=== PATIENT | female | born 1955 | race Caucasian/White ===

== ENCOUNTER 2016-05-05 12:18 | Inpatient (IN) | payer MEDICAID ==
[~2016-05-05] VITALS: Ht 157.5 cm; Wt 61.4 kg
[~2016-05-05 12:18] MED LIST: ACET300T4 PO; ALBU18 IN; BACL10TA PO; BECL80AE9 INH; FLUO-125 PO; IBUP600T27 PO; OMEP40CA PO
[2016-05-05 13:32] LABS: DEFINITIVE VIEW TRANSMISSION; Hematocrit 41.3 % (36.0-46.0); Hemoglobin 12.9 g/dL (12.2-16.2); Mean Corpuscular Hemoglobin 25.2 pg (28.0-32.0); Mean Corpuscular Hgb Conc. 31.4 g/dL (32.0-36.0); Mean Corpuscular Volume 80.4 fL (80.0-100.0); Platelet Count (auto) 518 10^3/uL (140-450); Red Cell Distribution Width 17.7 % (11.6-16.0); White Blood Cell 12.4 10^3/uL (4.4-10.8)
[2016-05-05 13:48] LABS: Metamyelocytes % 0; Myelocytes % 0; Promyelocytes % 0; Reactive Lymphocytes 0
[2016-05-05 13:59] LABS: Albumin 3.2 g/dL (3.4-5.0); BUN/Creatinine Ratio 20.3; Bilirubin, Total 0.2 mg/dL (0.2-1.0); Calcium 9.5 mg/dL (8.5-10.1); Magnesium 2.5 mg/dL (1.6-2.6); Potassium 3.6 mmol/L (3.5-5.1); Total Protein 7.2 g/dL (6.4-8.2)
[2016-05-05 14:07] LABS: Anisocytosis Slight; Platelet Estimate Increased
[2016-05-05] MEDS ORDERED: ALBUTEROL SULF 2.5 MG/0.5ML(0.5%) NEB SOLN NEB STA (18:02)
[2016-05-05] MEDS ORDERED: IPRATROPIUM BROM 0.5 MG/2.5ML INH SOL NEB ONE (18:15)
[2016-05-05] MEDS ORDERED: methylPREDNISolone SOD SUCC 125 MG/2 ML VL IV ONE (18:15)
[2016-05-05] MEDS ORDERED: cefTRIAXone 1GM/50ML D5W 50 ML IV ONE (18:15)
[2016-05-05 18:38] LABS: B-Type Natriuretic Peptide 43.37 pg/mL (0-100)
[2016-05-05 18:52] LABS: Temperature: 22.3 C (20.0-25.0)
[2016-05-05] MEDS ORDERED: AZITHROMYCIN 500MG/D5W 250ML 250 ML IV ONE (21:00)
[2016-05-05] MEDS: SODIUM CHLORIDE 0.9% 1,000 ML IV SCH (21:14)
[2016-05-05] MEDS ORDERED: ONDANSETRON HCL 4 MG/2 ML VIAL IV PRN (21:15)
[2016-05-05] MEDS: IPRATROPIUM BROM 0.5 MG/2.5ML INH SOL NEB SCH (22:40)
[2016-05-05] MEDS: ALBUTEROL SULF 2.5 MG/0.5ML(0.5%) NEB SOLN NEB SCH (22:40)
[2016-05-05] MEDS: BUTALBITAL-ASPIRIN-CAFF(FioriNAL) CAP PO PRN (22:53)
[2016-05-06] MEDS: IPRATROPIUM BROM 0.5 MG/2.5ML INH SOL NEB SCH ×6 (02:00→22:08)
[2016-05-06] MEDS: ALBUTEROL SULF 2.5 MG/0.5ML(0.5%) NEB SOLN NEB SCH ×6 (02:00→22:08)
[2016-05-06 05:49] LABS: Basophils # (auto) 0 uL; Basophils % (auto) 0.6 % (0.0-2.0); DEFINITIVE VIEW TRANSMISSION; Eosinophils # (auto) 0.1 uL; Eosinophils % (auto) 1.2 % (0.0-7.0); Hematocrit 33.2 % (36.0-46.0); Hemoglobin 10.8 g/dL (12.2-16.2); Lymphocytes # (auto) 1.3 uL; Lymphocytes % (auto) 19.2 % (10.0-50.0); Mean Corpuscular Hemoglobin 25.8 pg (28.0-32.0); Mean Corpuscular Hgb Conc. 32.6 g/dL (32.0-36.0); Monocytes # (auto) 0.5 uL; Monocytes % (auto) 7.5 % (0.0-12.0); Neutrophils # (auto) 4.8 uL; Neutrophils % (auto) 71.5 % (37.0-80.0); Platelet Count (auto) 419 10^3/uL (140-450); Red Cell Distribution Width 17.1 % (11.6-16.0); White Blood Cell 6.7 10^3/uL (4.4-10.8)
[2016-05-06 06:01] LABS: Albumin 2.4 g/dL (3.4-5.0); BUN/Creatinine Ratio 24.1; Calcium 8.1 mg/dL (8.5-10.1); Potassium 3.7 mmol/L (3.5-5.1)
[2016-05-06 06:02] LABS: Bilirubin, Total 0.2 mg/dL (0.2-1.0); Total Protein 5.8 g/dL (6.4-8.2)
[2016-05-06] MEDS: SODIUM CHLORIDE 0.9% 1,000 ML IV SCH ×2 (07:28→07:29)
[2016-05-06 08:00] VITALS: BP 102/68
[2016-05-06] MEDS: PANTOPRAZOLE SODIUM 40 MG/10 ML VIAL IV SCH (10:37)
[2016-05-06] MEDS: FLUoxetine HCL 20 MG CAP PO SCH (10:37)
[2016-05-06] MEDS: methylPREDNISolone SOD SUCC 125 MG/2 ML VL IV SCH (10:37)
[2016-05-06] MEDS: ENOXAPARIN SOD 40 MG/0.4 ML SYRINGE SC SCH (10:37)
[2016-05-06] MEDS: BUTALBITAL-ASPIRIN-CAFF(FioriNAL) CAP PO PRN ×2 (15:21→21:00)
[2016-05-06 16:00] VITALS: BP 111/59
[2016-05-06] MEDS: cefTRIAXone 1GM/50ML D5W 50 ML IV SCH (20:45)
[2016-05-06] MEDS: AZITHROMYCIN 500MG/D5W 250ML 250 ML IV SCH (20:46)
[2016-05-06 22:00] VITALS: BP_SYST 102; BP_SYST 93; BP_DIAS 57
[2016-05-07] MEDS: ALBUTEROL SULF 2.5 MG/0.5ML(0.5%) NEB SOLN NEB SCH ×6 (02:00→22:40)
[2016-05-07] MEDS: IPRATROPIUM BROM 0.5 MG/2.5ML INH SOL NEB SCH ×6 (02:00→22:40)
[2016-05-07 03:33] VITALS: BP 93/57
[2016-05-07 05:00] VITALS: BP_SYST 113; BP_SYST 119; BP_DIAS 59; BP_DIAS 80
[2016-05-07] MEDS: BUTALBITAL-ASPIRIN-CAFF(FioriNAL) CAP PO PRN ×2 (06:17→09:43)
[2016-05-07 08:00] VITALS: BP 110/74
[2016-05-07] MEDS: FLUoxetine HCL 20 MG CAP PO SCH (09:44)
[2016-05-07] MEDS: ENOXAPARIN SOD 40 MG/0.4 ML SYRINGE SC SCH (09:44)
[2016-05-07] MEDS: methylPREDNISolone SOD SUCC 125 MG/2 ML VL IV SCH (09:45)
[2016-05-07] MEDS: PANTOPRAZOLE SODIUM 40 MG/10 ML VIAL IV SCH (09:45)
[2016-05-07] MEDS ORDERED: HYDROcodone-ACET 5/325MG TAB ONE (10:32)
[2016-05-07] MEDS ORDERED: HYDROcodone-ACET 5/325MG TAB PO PRN (10:45)
[2016-05-07] MEDS: MORPHINE SULFATE 4 MG/ML SYRG IV PRN ×2 (11:33→21:08)
[2016-05-07 12:00] VITALS: BP 106/71
[2016-05-07] MEDS: SODIUM CHLORIDE 0.9% 1,000 ML IV SCH ×2 (13:19→22:28)
[2016-05-07 16:00] VITALS: BP 96/56
[2016-05-07] MEDS: cefTRIAXone 1GM/50ML D5W 50 ML IV SCH (21:07)
[2016-05-07] MEDS: AZITHROMYCIN 500MG/D5W 250ML 250 ML IV SCH (21:09)
[2016-05-07 21:30] VITALS: BP 110/68
[2016-05-07] MEDS: BUDESONIDE (INHALATION) 0.5 MG/2 ML NEB NEB SCH (22:40)
[2016-05-08] MEDS: MORPHINE SULFATE 4 MG/ML SYRG IV PRN ×3 (01:47→16:25)
[2016-05-08] MEDS: ALBUTEROL SULF 2.5 MG/0.5ML(0.5%) NEB SOLN NEB SCH ×6 (02:00→23:25)
[2016-05-08] MEDS: IPRATROPIUM BROM 0.5 MG/2.5ML INH SOL NEB SCH ×6 (02:00→23:25)
[2016-05-08 05:00] VITALS: BP 146/80
[2016-05-08 08:37] VITALS: BP 113/74
[2016-05-08] MEDS: methylPREDNISolone SOD SUCC 125 MG/2 ML VL IV SCH (10:14)
[2016-05-08] MEDS: ENOXAPARIN SOD 40 MG/0.4 ML SYRINGE SC SCH (10:14)
[2016-05-08] MEDS: PANTOPRAZOLE SODIUM 40 MG/10 ML VIAL IV SCH (10:14)
[2016-05-08] MEDS: FLUoxetine HCL 20 MG CAP PO SCH (10:15)
[2016-05-08] MEDS: BUDESONIDE (INHALATION) 0.5 MG/2 ML NEB NEB SCH ×2 (10:25→19:39)
[2016-05-08 13:00] VITALS: BP 97/58
[2016-05-08] MEDS: SODIUM CHLORIDE 0.9% 1,000 ML IV SCH (15:42)
[2016-05-08 17:00] VITALS: BP 123/70
[2016-05-08] MEDS: AZITHROMYCIN 500MG/D5W 250ML 250 ML IV SCH (21:03)
[2016-05-08] MEDS: cefTRIAXone 1GM/50ML D5W 50 ML IV SCH (21:04)
[2016-05-08] MEDS: HYDROcodone-ACET 10/325MG TAB PO PRN (21:05)
[2016-05-08 22:00] VITALS: BP 125/83
[2016-05-08] MEDS: BUTALBITAL-ASPIRIN-CAFF(FioriNAL) CAP PO PRN (23:30)
[2016-05-09] MEDS: ALBUTEROL SULF 2.5 MG/0.5ML(0.5%) NEB SOLN NEB SCH ×4 (02:00→10:57)
[2016-05-09] MEDS: IPRATROPIUM BROM 0.5 MG/2.5ML INH SOL NEB SCH ×4 (02:00→10:57)
[2016-05-09] MEDS: HYDROcodone-ACET 10/325MG TAB PO PRN ×2 (03:21→09:01)
[2016-05-09 05:30] VITALS: BP 107/73
[2016-05-09] MEDS: SODIUM CHLORIDE 0.9% 1,000 ML IV SCH (06:00)
[2016-05-09] MEDS: BUDESONIDE (INHALATION) 0.5 MG/2 ML NEB NEB SCH (07:09)
[2016-05-09] MEDS: PANTOPRAZOLE SODIUM 40 MG/10 ML VIAL IV SCH (08:59)
[2016-05-09] MEDS: methylPREDNISolone SOD SUCC 125 MG/2 ML VL IV SCH (09:00)
[2016-05-09] MEDS: FLUoxetine HCL 20 MG CAP PO SCH (09:00)
[2016-05-09 09:20] VITALS: BP 104/68
[2016-05-09 12:09] VITALS: BP 122/75
== END 2016-05-09 13:00 | disposition home or self-care (01) | DRG 140 ==
LOC: ER 12:19 → OVERFLOW 12:20 → WEST WING 22:20
PROVIDERS: ADMIT Family Medicine; ATTEND Internal Medicine
DX: J44.0 Chronic obstructive pulmonary disease with (acute) lower respiratory infection (principal); J18.9 Pneumonia, unspecified organism; F41.9 Anxiety disorder, unspecified; J44.1 Chronic obstructive pulmonary disease with (acute) exacerbation; I10 Essential (primary) hypertension; Z87.891 Personal history of nicotine dependence; Z98.82 Breast implant status; D47.3 Essential (hemorrhagic) thrombocythemia; F32.9 Major depressive disorder, single episode, unspecified; Z90.89 Acquired absence of other organs
CPT/HCPCS: 36415; 36600; 71010; 71020; 71250; 80053; 82805; 83605; 83735; 83880; 84484; 85007; 85025; 85027; 85049; 87040; 87070; 87205; 87400; 93005; 94640; 94761; 96365; 96375; C9113; J0696; J2405

== ENCOUNTER 2016-06-07 09:55 | Inpatient (IN) | payer MEDICAID ==
[~2016-06-07] VITALS: Ht 157.5 cm; Wt 66.5 kg
[2016-06-07] MEDS ORDERED: ALBUTEROL SULF 2.5 MG/0.5ML(0.5%) NEB SOLN HHN STA (10:33)
[2016-06-07 10:38] LABS: Basophils # (auto) 0 uL; Basophils % (auto) 0.2 % (0.0-2.0); DEFINITIVE VIEW TRANSMISSION; Hematocrit 36.8 % (36.0-46.0); Hemoglobin 11.3 g/dL (12.2-16.2); Lymphocytes # (auto) 1.8 uL; Lymphocytes % (auto) 17.8 % (10.0-50.0); Mean Corpuscular Hemoglobin 24.6 pg (28.0-32.0); Mean Corpuscular Hgb Conc. 30.6 g/dL (32.0-36.0); Mean Corpuscular Volume 80.5 fL (80.0-100.0); Mean Platelet Volume 7.4 fL (7.4-10.4); Monocytes # (auto) 0.8 uL; Monocytes % (auto) 7.8 % (0.0-12.0); Neutrophils # (auto) 5.5 uL; Neutrophils % (auto) 54.7 % (37.0-80.0); Platelet Count (auto) 390 10^3/uL (140-450); Red Cell Distribution Width 16.7 % (11.6-16.0); White Blood Cell 10.1 10^3/uL (4.4-10.8)
[2016-06-07] MEDS ORDERED: methylPREDNISolone SOD SUCC 125 MG/2 ML VL IV ONE (10:45)
[2016-06-07] MEDS ORDERED: LEVOFLOXACIN 500MG 100 ML IV ONE (10:45)
[2016-06-07] MEDS ORDERED: IPRATROPIUM BROM 0.5 MG/2.5ML INH SOL NEB ONE (10:45)
[2016-06-07 10:50] LABS: Eosinophils % (auto) 19.5 % (0.0-7.0)
[2016-06-07 11:00] LABS: Albumin 2.5 g/dL (3.4-5.0); BUN/Creatinine Ratio 13.1; Calcium 8.5 mg/dL (8.5-10.1); Potassium 3.2 mmol/L (3.5-5.1)
[2016-06-07 11:02] LABS: Bilirubin, Total 0.2 mg/dL (0.2-1.0); Total Protein 6.3 g/dL (6.4-8.2)
[2016-06-07] MEDS ORDERED: POTASSIUM CHL 20 Meq TABLET PO ONE (11:45)
[2016-06-07] MEDS ORDERED: PROMETHAZINE HCL 25 MG/ML 1ML IV PRN (11:45)
[2016-06-07] MEDS ORDERED: ACETAMINOPHEN 500 MG TAB PO PRN (11:45)
[2016-06-07] MEDS ORDERED: ALBUTEROL SULF 2.5 MG/0.5ML(0.5%) NEB SOLN NEB PRN (11:45)
[2016-06-07] MEDS ORDERED: MORPHINE SULF INJ 2 MG/ML SYRINGE 1ML IV PRN (11:45)
[2016-06-07] MEDS ORDERED: NITROGLYCERIN 0.4 MG SL TAB SL PRN (11:45)
[2016-06-07] MEDS ORDERED: OSELTAMIVIR 75 MG CAP PO ONE (12:00)
[2016-06-07 12:38] LABS: Magnesium 2.4 mg/dL (1.6-2.6)
[2016-06-07] MEDS: ENOXAPARIN SOD 40 MG/0.4 ML SYRINGE SC SCH (13:00)
[2016-06-07] MEDS: methylPREDNISolone SOD SUCC 40 MG/ML VL IV SCH ×3 (13:00→23:19)
[2016-06-07] MEDS: SODIUM CHLORIDE 0.9% 1,000 ML IV SCH (13:16)
[2016-06-07 14:04] LABS: B-Type Natriuretic Peptide 57.56 pg/mL (0-100)
[2016-06-07 14:13] LABS: Temperature: 21.9 C (20.0-25.0)
[2016-06-07 15:15] LABS: Urine Bilirubin Negative (Negative); Urine Color Yellow (Yellow); Urine Glucose Normal (Normal); Urine Ketone Negative (Negative); Urine Mucus FEW (None Seen); Urine Nitrite Negative (Negative); Urine RBC 10 /hpf (0 - 4); Urine Squamous Epithelial Cell FEW /hpf (<5); Urine Urobilinogen Normal (Negative)
[2016-06-07 15:31] LABS: Urine Blood 1+ /uL (Negative)
[2016-06-07] MEDS: ALBUTEROL SULF 2.5 MG/0.5ML(0.5%) NEB SOLN NEB SCH ×2 (15:55→19:35)
[2016-06-07] MEDS: IPRATROPIUM BROM 0.5 MG/2.5ML INH SOL NEB SCH ×2 (15:55→19:35)
[2016-06-07] MEDS: MORPHINE SULF INJ 2 MG/ML SYRINGE 1ML IV PRN (16:10)
[2016-06-07] MEDS ORDERED: DIAZ2TAB PO (16:19)
[2016-06-07] MEDS ORDERED: NOR5T PO (16:19)
[2016-06-07] MEDS ORDERED: TRAZ50TA2 PO (16:19)
[2016-06-07] MEDS ORDERED: BUTA50TA36 OR (16:19)
[2016-06-07 20:00] VITALS: BP 106/60
[2016-06-07] MEDS: HYDROcodone-ACET 5/325MG TAB PO PRN (20:26)
[2016-06-07 21:51] VITALS: BP 106/60
[2016-06-07] MEDS ORDERED: OSELTAMIVIR 75 MG CAP PO SCH (22:00)
[2016-06-08] MEDS: SODIUM CHLORIDE 0.9% 1,000 ML IV SCH ×2 (01:20→14:14)
[2016-06-08] MEDS: IPRATROPIUM BROM 0.5 MG/2.5ML INH SOL NEB SCH ×4 (01:35→20:25)
[2016-06-08] MEDS: ALBUTEROL SULF 2.5 MG/0.5ML(0.5%) NEB SOLN NEB SCH ×4 (01:35→20:25)
[2016-06-08 02:53] VITALS: BP 106/60
[2016-06-08] MEDS: methylPREDNISolone SOD SUCC 40 MG/ML VL IV SCH ×4 (05:16→23:42)
[2016-06-08 08:43] VITALS: BP 125/80
[2016-06-08] MEDS: MORPHINE SULF INJ 2 MG/ML SYRINGE 1ML IV PRN ×3 (09:14→17:35)
[2016-06-08] MEDS: ENOXAPARIN SOD 40 MG/0.4 ML SYRINGE SC SCH (09:14)
[2016-06-08] MEDS: LEVOFLOXACIN 500MG 100 ML IV SCH (09:14)
[2016-06-08] MEDS: HYDROcodone-ACET 5/325MG TAB PO PRN (11:15)
[2016-06-08 12:33] VITALS: BP 105/69
[2016-06-08] MEDS: PROMETHAZINE W/CODEINE 5 ML ORAL SYRUP PO PRN ×2 (16:10→22:00)
[2016-06-08] MEDS: DOXYCYCLINE HYC 100MG/250ML 250 ML IV SCH (16:10)
[2016-06-08 17:42] VITALS: BP 103/70
[2016-06-08] MEDS: BUDESONIDE (INHALATION) 0.5 MG/2 ML NEB NEB SCH (20:25)
[2016-06-08] MEDS: TEMAZEPAM 15 MG CAP PO PRN (21:40)
[2016-06-08 22:00] VITALS: BP 102/72
[2016-06-09] MEDS: DOXYCYCLINE HYC 100MG/250ML 250 ML IV SCH ×2 (03:20→15:26)
[2016-06-09] MEDS: SODIUM CHLORIDE 0.9% 1,000 ML IV SCH ×2 (05:23→17:19)
[2016-06-09] MEDS: methylPREDNISolone SOD SUCC 40 MG/ML VL IV SCH ×4 (05:23→23:56)
[2016-06-09 05:27] VITALS: BP 121/82
[2016-06-09] MEDS: ALBUTEROL SULF 2.5 MG/0.5ML(0.5%) NEB SOLN NEB SCH ×4 (07:09→19:47)
[2016-06-09] MEDS: BUDESONIDE (INHALATION) 0.5 MG/2 ML NEB NEB SCH ×2 (07:09→19:47)
[2016-06-09] MEDS: IPRATROPIUM BROM 0.5 MG/2.5ML INH SOL NEB SCH ×4 (07:09→19:47)
[2016-06-09] MEDS: PROMETHAZINE W/CODEINE 5 ML ORAL SYRUP PO PRN ×3 (08:27→21:35)
[2016-06-09] MEDS: MORPHINE SULF INJ 2 MG/ML SYRINGE 1ML IV PRN ×3 (08:27→15:27)
[2016-06-09 08:41] VITALS: BP 125/81
[2016-06-09] MEDS: ENOXAPARIN SOD 40 MG/0.4 ML SYRINGE SC SCH (09:33)
[2016-06-09] MEDS: LEVOFLOXACIN 500MG 100 ML IV SCH (09:33)
[2016-06-09] MEDS: HYDROcodone-ACET 5/325MG TAB PO PRN ×2 (11:00→18:50)
[2016-06-09 12:42] VITALS: BP 120/80
[2016-06-09 17:08] VITALS: BP 103/64
[2016-06-09 21:30] VITALS: BP 102/64
[2016-06-09] MEDS: TEMAZEPAM 15 MG CAP PO PRN (21:36)
[2016-06-10] MEDS: DOXYCYCLINE HYC 100MG/250ML 250 ML IV SCH ×2 (03:42→16:54)
[2016-06-10 05:00] VITALS: BP 129/79
[2016-06-10] MEDS: methylPREDNISolone SOD SUCC 40 MG/ML VL IV SCH ×4 (05:30→23:44)
[2016-06-10] MEDS: SODIUM CHLORIDE 0.9% 1,000 ML IV SCH ×2 (06:15→19:52)
[2016-06-10] MEDS: MORPHINE SULF INJ 2 MG/ML SYRINGE 1ML IV PRN ×3 (06:48→18:39)
[2016-06-10] MEDS: IPRATROPIUM BROM 0.5 MG/2.5ML INH SOL NEB SCH ×5 (06:53→23:57)
[2016-06-10] MEDS: ALBUTEROL SULF 2.5 MG/0.5ML(0.5%) NEB SOLN NEB SCH ×5 (06:53→23:58)
[2016-06-10] MEDS: BUDESONIDE (INHALATION) 0.5 MG/2 ML NEB NEB SCH ×2 (06:54→18:18)
[2016-06-10 08:37] VITALS: BP 115/73
[2016-06-10] MEDS: PROMETHAZINE W/CODEINE 5 ML ORAL SYRUP PO PRN ×3 (08:48→18:37)
[2016-06-10] MEDS: LEVOFLOXACIN 500MG 100 ML IV SCH (09:30)
[2016-06-10] MEDS: ENOXAPARIN SOD 40 MG/0.4 ML SYRINGE SC SCH (09:30)
[2016-06-10 12:30] VITALS: BP 123/81
[2016-06-10 14:14] VITALS: BP 140/86
[2016-06-10 16:38] VITALS: BP 131/77
[2016-06-10] MEDS: HYDROcodone-ACET 5/325MG TAB PO PRN (20:30)
[2016-06-10] MEDS: TEMAZEPAM 15 MG CAP PO PRN (21:40)
[2016-06-10 22:00] VITALS: BP 103/70
[2016-06-11 01:20] VITALS: BP 103/70
[2016-06-11] MEDS: DOXYCYCLINE HYC 100MG/250ML 250 ML IV SCH ×2 (03:23→15:51)
[2016-06-11 05:00] VITALS: BP 122/79
[2016-06-11] MEDS: methylPREDNISolone SOD SUCC 40 MG/ML VL IV SCH ×3 (05:25→17:49)
[2016-06-11] MEDS: PROMETHAZINE W/CODEINE 5 ML ORAL SYRUP PO PRN ×4 (06:21→22:49)
[2016-06-11] MEDS: MORPHINE SULF INJ 2 MG/ML SYRINGE 1ML IV PRN ×4 (06:22→20:36)
[2016-06-11 06:23] LABS: Basophils # (auto) 0 uL; DEFINITIVE VIEW TRANSMISSION; Eosinophils # (auto) 0 uL; Hematocrit 34.1 % (36.0-46.0); Hemoglobin 11.2 g/dL (12.2-16.2); Lymphocytes # (auto) 1.6 uL; Lymphocytes % (auto) 12.2 % (10.0-50.0); Mean Corpuscular Hemoglobin 25.6 pg (28.0-32.0); Mean Corpuscular Hgb Conc. 32.9 g/dL (32.0-36.0); Mean Corpuscular Volume 78.1 fL (80.0-100.0); Mean Platelet Volume 7.1 fL (7.4-10.4); Monocytes # (auto) 0.5 uL; Monocytes % (auto) 3.8 % (0.0-12.0); Neutrophils # (auto) 10.9 uL; Platelet Count (auto) 444 10^3/uL (140-450); Red Cell Distribution Width 17.4 % (11.6-16.0); White Blood Cell 12.9 10^3/uL (4.4-10.8)
[2016-06-11 06:49] LABS: Potassium 4.1 mmol/L (3.5-5.1)
[2016-06-11 06:54] LABS: Albumin 2.2 g/dL (3.4-5.0); BUN/Creatinine Ratio 23.6; Bilirubin, Total 0.2 mg/dL (0.2-1.0); Calcium 8.3 mg/dL (8.5-10.1); Total Protein 5.5 g/dL (6.4-8.2)
[2016-06-11] MEDS: BUDESONIDE (INHALATION) 0.5 MG/2 ML NEB NEB SCH ×2 (07:08→20:12)
[2016-06-11] MEDS: ALBUTEROL SULF 2.5 MG/0.5ML(0.5%) NEB SOLN NEB SCH ×3 (07:08→20:12)
[2016-06-11] MEDS: IPRATROPIUM BROM 0.5 MG/2.5ML INH SOL NEB SCH ×3 (07:08→20:12)
[2016-06-11] MEDS: SODIUM CHLORIDE 0.9% 1,000 ML IV SCH (08:54)
[2016-06-11 09:00] VITALS: BP 109/70
[2016-06-11] MEDS: LEVOFLOXACIN 500MG 100 ML IV SCH (10:00)
[2016-06-11] MEDS: ENOXAPARIN SOD 40 MG/0.4 ML SYRINGE SC SCH (10:00)
[2016-06-11] MEDS: LORazepam 0.5 MG TAB PO PRN ×3 (11:58→21:37)
[2016-06-11] MEDS: HYDROcodone-ACET 5/325MG TAB PO PRN ×2 (11:58→17:49)
[2016-06-11] MEDS ORDERED: PAR20T PO (12:12)
[2016-06-11 12:41] VITALS: BP 114/73
[2016-06-11 17:03] VITALS: BP 121/79
[2016-06-11] MEDS: DOCUSATE SOD 100 MG CAP PO SCH (21:37)
[2016-06-11 21:41] VITALS: BP 116/79
[2016-06-11] MEDS: TEMAZEPAM 15 MG CAP PO PRN (22:49)
[2016-06-12] MEDS: methylPREDNISolone SOD SUCC 40 MG/ML VL IV SCH ×4 (00:09→16:54)
[2016-06-12] MEDS: SODIUM CHLORIDE 0.9% 1,000 ML IV SCH ×3 (00:10→23:33)
[2016-06-12] MEDS: MORPHINE SULF INJ 2 MG/ML SYRINGE 1ML IV PRN ×5 (00:35→21:09)
[2016-06-12] MEDS: DOXYCYCLINE HYC 100MG/250ML 250 ML IV SCH ×2 (03:38→16:28)
[2016-06-12 04:39] VITALS: BP 109/72
[2016-06-12] MEDS: IPRATROPIUM BROM 0.5 MG/2.5ML INH SOL NEB SCH ×5 (06:49→21:47)
[2016-06-12] MEDS: ALBUTEROL SULF 2.5 MG/0.5ML(0.5%) NEB SOLN NEB SCH ×5 (06:49→21:47)
[2016-06-12] MEDS: BUDESONIDE (INHALATION) 0.5 MG/2 ML NEB NEB SCH ×2 (06:49→18:30)
[2016-06-12] MEDS: DOCUSATE SOD 100 MG CAP PO SCH ×2 (08:40→21:08)
[2016-06-12] MEDS: ENOXAPARIN SOD 40 MG/0.4 ML SYRINGE SC SCH (08:41)
[2016-06-12] MEDS: FLUoxetine HCL 20 MG CAP PO SCH (08:41)
[2016-06-12] MEDS: PROMETHAZINE W/CODEINE 5 ML ORAL SYRUP PO PRN ×3 (08:42→21:08)
[2016-06-12] MEDS: HYDROcodone-ACET 5/325MG TAB PO PRN ×2 (08:42→23:32)
[2016-06-12 09:00] VITALS: BP 112/65
[2016-06-12 12:41] VITALS: BP 126/68
[2016-06-12 16:32] VITALS: BP 123/62
[2016-06-12] MEDS: LORazepam 0.5 MG TAB PO PRN ×2 (16:54→23:32)
[2016-06-12] MEDS ORDERED: methylPREDNISolone SOD SUCC 125 MG/2 ML VL IV SCH (19:04)
[2016-06-12] MEDS: ACETYLCYSTEINE 20%(200MG/ML) SOL 4ML NEB SCH (21:47)
[2016-06-12 21:50] VITALS: BP 105/71
[2016-06-12] MEDS ORDERED: cefTRIAXone 1GM/50ML D5W 50 ML IV ONE (23:00)
[2016-06-12] MEDS: methylPREDNISolone SOD SUCC 125 MG/2 ML VL IV SCH (23:32)
[2016-06-13] MEDS: TEMAZEPAM 15 MG CAP PO PRN ×2 (00:34→23:45)
[2016-06-13] MEDS: IPRATROPIUM BROM 0.5 MG/2.5ML INH SOL NEB SCH ×6 (02:10→22:43)
[2016-06-13] MEDS: ALBUTEROL SULF 2.5 MG/0.5ML(0.5%) NEB SOLN NEB SCH ×6 (02:10→22:42)
[2016-06-13] MEDS: DOXYCYCLINE HYC 100MG/250ML 250 ML IV SCH ×2 (03:38→15:58)
[2016-06-13 05:15] VITALS: BP 90/60
[2016-06-13] MEDS: methylPREDNISolone SOD SUCC 125 MG/2 ML VL IV SCH ×4 (05:24→23:44)
[2016-06-13] MEDS: MORPHINE SULF INJ 2 MG/ML SYRINGE 1ML IV PRN ×3 (05:25→16:23)
[2016-06-13] MEDS ORDERED: ALBUTEROL SULF 2.5 MG/0.5ML(0.5%) NEB SOLN ONE ×2 (06:35→13:24)
[2016-06-13] MEDS ORDERED: IPRATROPIUM BROM 0.5 MG/2.5ML INH SOL ONE ×2 (06:35→13:24)
[2016-06-13] MEDS ORDERED: BUDESONIDE (INHALATION) 0.5 MG/2 ML NEB ONE (06:36)
[2016-06-13] MEDS: BUDESONIDE (INHALATION) 0.5 MG/2 ML NEB NEB SCH ×2 (07:20→20:18)
[2016-06-13] MEDS: ACETYLCYSTEINE 20%(200MG/ML) SOL 4ML NEB SCH ×3 (07:20→22:43)
[2016-06-13 08:00] VITALS: BP 114/71
[2016-06-13] MEDS: HYDROcodone-ACET 5/325MG TAB PO PRN ×2 (08:28→20:56)
[2016-06-13] MEDS: LORazepam 0.5 MG TAB PO PRN ×2 (08:37→17:04)
[2016-06-13] MEDS: PROMETHAZINE W/CODEINE 5 ML ORAL SYRUP PO PRN ×3 (08:38→16:59)
[2016-06-13] MEDS: cefTRIAXone 1GM/50ML D5W 50 ML IV SCH (08:59)
[2016-06-13] MEDS: DOCUSATE SOD 100 MG CAP PO SCH ×2 (10:29→22:44)
[2016-06-13] MEDS: FLUoxetine HCL 20 MG CAP PO SCH (10:30)
[2016-06-13] MEDS: ENOXAPARIN SOD 40 MG/0.4 ML SYRINGE SC SCH (10:30)
[2016-06-13 13:00] VITALS: BP 94/62
[2016-06-13] MEDS ORDERED: ACETYLCYSTEINE 20%(200MG/ML) SOL 4ML ONE (13:46)
[2016-06-13] MEDS: SODIUM CHLORIDE 0.9% 1,000 ML IV SCH (15:08)
[2016-06-13 17:00] VITALS: BP 107/73
[2016-06-13 20:00] VITALS: BP 100/68
[2016-06-13 22:00] VITALS: BP 100/68
[2016-06-14 01:00] VITALS: BP 107/69
[2016-06-14] MEDS: LORazepam 0.5 MG TAB PO PRN ×3 (01:02→22:19)
[2016-06-14] MEDS: IPRATROPIUM BROM 0.5 MG/2.5ML INH SOL NEB SCH ×6 (02:00→21:50)
[2016-06-14] MEDS: ALBUTEROL SULF 2.5 MG/0.5ML(0.5%) NEB SOLN NEB SCH ×6 (02:00→21:50)
[2016-06-14] MEDS: SODIUM CHLORIDE 0.9% 1,000 ML IV SCH ×2 (03:45→16:54)
[2016-06-14] MEDS: DOXYCYCLINE HYC 100MG/250ML 250 ML IV SCH ×2 (03:45→15:45)
[2016-06-14 05:00] VITALS: BP 104/69
[2016-06-14] MEDS: methylPREDNISolone SOD SUCC 125 MG/2 ML VL IV SCH ×4 (05:36→23:38)
[2016-06-14] MEDS: ACETYLCYSTEINE 20%(200MG/ML) SOL 4ML NEB SCH ×3 (06:32→21:51)
[2016-06-14] MEDS: BUDESONIDE (INHALATION) 0.5 MG/2 ML NEB NEB SCH ×2 (06:32→19:38)
[2016-06-14] MEDS: cefTRIAXone 1GM/50ML D5W 50 ML IV SCH (08:56)
[2016-06-14] MEDS: MORPHINE SULF INJ 2 MG/ML SYRINGE 1ML IV PRN (08:56)
[2016-06-14] MEDS: FLUoxetine HCL 20 MG CAP PO SCH (09:18)
[2016-06-14] MEDS: ENOXAPARIN SOD 40 MG/0.4 ML SYRINGE SC SCH (09:18)
[2016-06-14] MEDS: DOCUSATE SOD 100 MG CAP PO SCH ×2 (09:18→22:19)
[2016-06-14] MEDS: PROMETHAZINE W/CODEINE 5 ML ORAL SYRUP PO PRN (12:59)
[2016-06-14 13:32] VITALS: BP 122/78
[2016-06-14] MEDS: HYDROcodone-ACET 5/325MG TAB PO PRN (15:45)
[2016-06-14 17:04] VITALS: BP 114/76
[2016-06-14 20:00] VITALS: BP 106/68
[2016-06-14 22:00] VITALS: BP 106/68
[2016-06-14] MEDS: TEMAZEPAM 15 MG CAP PO PRN (23:38)
[2016-06-15] MEDS: HYDROcodone-ACET 5/325MG TAB PO PRN (00:06)
[2016-06-15] MEDS: ALBUTEROL SULF 2.5 MG/0.5ML(0.5%) NEB SOLN NEB SCH ×4 (02:20→14:44)
[2016-06-15] MEDS: IPRATROPIUM BROM 0.5 MG/2.5ML INH SOL NEB SCH ×4 (02:20→14:44)
[2016-06-15] MEDS: DOXYCYCLINE HYC 100MG/250ML 250 ML IV SCH ×2 (03:36→15:45)
[2016-06-15 05:16] VITALS: BP 118/75
[2016-06-15] MEDS: SODIUM CHLORIDE 0.9% 1,000 ML IV SCH (06:14)
[2016-06-15] MEDS: methylPREDNISolone SOD SUCC 125 MG/2 ML VL IV SCH ×2 (06:19→12:35)
[2016-06-15] MEDS: MORPHINE SULF INJ 2 MG/ML SYRINGE 1ML IV PRN ×3 (06:33→15:39)
[2016-06-15] MEDS: ACETYLCYSTEINE 20%(200MG/ML) SOL 4ML NEB SCH ×2 (07:12→14:44)
[2016-06-15 08:59] LABS: Basophils # (auto) 0 uL; Basophils % (auto) 0.2 % (0.0-2.0); DEFINITIVE VIEW TRANSMISSION; Eosinophils # (auto) 0 uL; Eosinophils % (auto) 0.3 % (0.0-7.0); Hematocrit 37.6 % (36.0-46.0); Hemoglobin 12.2 g/dL (12.2-16.2); Lymphocytes # (auto) 0.8 uL; Lymphocytes % (auto) 5.6 % (10.0-50.0); Mean Corpuscular Hemoglobin 25.6 pg (28.0-32.0); Mean Corpuscular Hgb Conc. 32.5 g/dL (32.0-36.0); Mean Corpuscular Volume 78.6 fL (80.0-100.0); Mean Platelet Volume 6.9 fL (7.4-10.4); Monocytes # (auto) 0.3 uL; Monocytes % (auto) 2.1 % (0.0-12.0); Neutrophils # (auto) 12.4 uL; Neutrophils % (auto) 91.8 % (37.0-80.0); Platelet Count (auto) 419 10^3/uL (140-450); Red Cell Distribution Width 17.7 % (11.6-16.0); White Blood Cell 13.5 10^3/uL (4.4-10.8)
[2016-06-15 09:00] VITALS: BP 108/79
[2016-06-15] MEDS: FLUoxetine HCL 20 MG CAP PO SCH (09:21)
[2016-06-15] MEDS: DOCUSATE SOD 100 MG CAP PO SCH (09:21)
[2016-06-15] MEDS: ENOXAPARIN SOD 40 MG/0.4 ML SYRINGE SC SCH (09:21)
[2016-06-15] MEDS: LORazepam 0.5 MG TAB PO PRN (09:21)
[2016-06-15] MEDS: cefTRIAXone 1GM/50ML D5W 50 ML IV SCH (09:21)
[2016-06-15 09:34] LABS: BUN/Creatinine Ratio 31.3; Calcium 8.2 mg/dL (8.5-10.1); Potassium 4.2 mmol/L (3.5-5.1)
[2016-06-15] MEDS: BUDESONIDE (INHALATION) 0.5 MG/2 ML NEB NEB SCH (10:48)
[2016-06-15 12:00] VITALS: BP 110/63
[2016-06-15 15:55] VITALS: BP 110/63
[2016-06-15 16:02] VITALS: BP 110/68
[2016-06-15 17:00] VITALS: BP 128/72
== END 2016-06-15 17:22 | disposition home or self-care (01) | DRG 720 ==
LOC: EDUNIT# 09:55 → EDBD 10:02 → ER 10:02 → TELE 10:03 → TELE-WESTW 18:04
PROVIDERS: ADMIT Internal Medicine; ATTEND Internal Medicine
DX: A41.9 Sepsis, unspecified organism (principal); J96.20 Acute and chronic respiratory failure, unspecified whether with hypoxia or hypercapnia; J15.9 Unspecified bacterial pneumonia; J44.0 Chronic obstructive pulmonary disease with (acute) lower respiratory infection; E78.5 Hyperlipidemia, unspecified; J44.1 Chronic obstructive pulmonary disease with (acute) exacerbation; E87.6 Hypokalemia; D64.9 Anemia, unspecified; F32.9 Major depressive disorder, single episode, unspecified; I10 Essential (primary) hypertension; Z82.49 Family history of ischemic heart disease and other diseases of the circulatory system; Z87.01 Personal history of pneumonia (recurrent); Z87.891 Personal history of nicotine dependence; Z98.82 Breast implant status; Z99.81 Dependence on supplemental oxygen; Z90.89 Acquired absence of other organs; Z80.1 Family history of malignant neoplasm of trachea, bronchus and lung; Z81.8 Family history of other mental and behavioral disorders; Z71.89 Other specified counseling
CPT/HCPCS: 36415; 71010; 71020; 80048; 80053; 81001; 83605; 83735; 83880; 84484; 85025; 87040; 87070; 87205; 87400; 93005; 93971; 94640; 94644; 94761; 96365; 96375; J0696; J1956; J3490